=== PATIENT | female | born 1930 | race Caucasian/White ===

== ENCOUNTER 2016-12-10 03:59 | Inpatient (IN) | payer MEDICARE ==
[2016-12-10] VITALS (7 sets, daily range): BP systolic 112–166; BP diastolic 42–78; PULSE 70–82; RESP 16–22; O2SAT 92–98
[~2016-12-10] VITALS: Ht 157.5 cm; Wt 65.6 kg
[~2016-12-10 03:59] MED LIST: ASP81TEC PO; DEXT1DRO8 OP; HYDR12.55 PO; HYDR1TAB69 PO; LOPRESSOR25 MG PO; LOVA40TA PO; MVI PO; OMEP20TA86 PO; POLY1PAC PO; [UNRECOGNIZED DRUG - CODE] SC
[2016-12-10 05:23] LABS: BASOPHILS % (AUTO) 0.1 % (0-3); EOSINOPHILS % (AUTO) 0.4 % (0-5); MONOCYTES % (AUTO) 11.2 % (4-12); Mean Corpuscular Hemoglobin 32.9 pg (27.0-35.0); Mean Corpuscular Volume 94.6 fL (81-100); NEUTROPHILS % (AUTO) 71.8 % (40-74); Platelet Count 207 bil/L (150-400)
--- NOTE | 2016-12-10 05:32 | ED.REPORT ---
HPI-Fever Date of Service Dec 10, 2016 ED Provider: Kevin Kay MD This is a 86-year-old female with history of vascular dementia, hypertension, hyperlipidemia who presents to the emergency department for fever. Info as relayed by as patient has severe dementia. notes that patient has been having nonproductive coughing since 6 days prior and has developed a fever for the last 3 days with temperature of 100.4. has been giving Tylenol to help control the fever. Associated symptoms include runny nose. Denies myalgias, arthralgias, chest pain, shortness of breath, nausea, vomiting , abdominal pain, diarrhea. Possible sick contacts around, but they are uncertain. is uncertain of changes in urinary symptoms. Nursing Notes Stated Complaint: FLU LIKE SYMPTOMS Chief Complaint: General Complaint Nursing Notes Reviewed: Yes Allergies: Coded Allergies: No Known Allergies (Unverified , 12/12/13) Scheduled Aspirin-Expunged Drug, Do Not Renew! (Aspirin EC-Expunged Drug, Do Not Renew!) 81 Mg Tablet 81 MG PO DAILY Enoxaparin-Expunged Drug, Do Not Renew! (Lovenox-Expunged Drug, Do Not Renew!) 40 Mg/0.4 Ml Soln 40 MG SC DAILY Hydrochlorothiazide-Expunged, Do Not Renew! (Hydrochlorothiazide-Expunged, Do Not Renew!) 12.5 Mg Tablet 12.5 MG PO DAILY Hydrocod/APAP-Expunged, Do Not Renew! (VICODIN-Expunged Drug, Do Not Renew) 1 Tab Tab 1 TAB PO Q4 Lovastatin-Expunged Drug, Do Not Renew! (Lovastatin-Expunged Drug, Do Not Renew! ) 40 Mg Tablet 40 MG PO HS Metoprolol Tart-Expunged Drug, Do Not Renew! (Metoprolol Tart-Expunged Drug, Do Not Renew!) 25 Mg Tab 25 MG PO DAILY Omeprazole-Expunged Drug, Do Not Renew! (Omeprazole-Expunged Drug, Do Not Renew! ) 20 Mg Tablet.dr 20 MG PO DAILY PEG 3350-Expunged Drug, Do Not Renew! (Miralax-Expunged Drug, Do Not Renew!) 17 Gm/Pkt Packet 17 GM PO DAILY Therapeutic Multivit/Minerals-Expunged Drug, (Therapeutic Multivit/Minerals- Expunged Drug,) 1 Ea Tab 1 TAB PO DAILY Miscellaneous Medications Dextran 70/Hypromellose (Artificial Tears Drops) 1 Each Droperette 1 EACH OP General Time Seen by MD: 04:40 Chief Complaint Recent fever Hx Obtained From: Spouse Past Medical History Past Medical History Vascular dementia hypertension hyperlipidemia left eye blindness Past Surgical History Left Hip surgery Smoking History Former Smoker Social History Alcohol Use: Denies alcohol use Drug Use: Denies drug use Review of Systems Constitutional: Reports: Fever, Weakness - generalized Ears / Nose / Throat: Reports: Nasal congestion, Denies: Earache bilateral Respiratory: Reports: Non-productive cough, Denies: Shortness of breath Cardiovascular: Denies: Chest pain GI: Denies: Abdominal pain, Diarrhea, Nausea, Vomiting Female: Denies: Dysuria, Urinary frequency Complete sys rev & neg: except as marked. Physical Exam Initial Vital Signs Vital Signs (First) Date Time Temp Pulse Resp B/P Pulse Ox O2 Delivery O2 Flow Rate FiO2 12/10/16 04:07 36.5 79 19 130/42 97 Room Air Initial VS: Reviewed Head / Eyes: Atraumatic, Normocephalic ENT: Mucous membranes moist, Conjunctiva normal, No scleral icterus Abdomen / GI: Soft, Non-tender, No guarding, No rebound, No distention Back: No CVA tenderness Lymphatic: No lymphadenopathy Extremities: Vascular intact, Neuro intact, No swelling Respiratory / Chest: No rhonchi, No wheezing Rales / Rhonchi: Positive: Rales R base Tachypnea Cardiovascular: Heart rate NL, Regular rhythm, Heart sounds NL, No murmurs Neurologic: Speech NL Mental Status: Positive: Memory impairment chronic Lymphatic: No cervical adenopathy Interpretation & Diagnostics Lab Results Interpretation Result Diagram: 12/10/16 0510 12/10/16 0510 Test 12/10/16 05:10 12/10/16 05:28 White Blood Count 10.5th/mm3 (3.8-10.1) Red Blood Count 3.71mil/mm3 (3.90-5.20) Hemoglobin 12.2g/dL (12.0-15.6) Hematocrit 35.1% (35.0-46.0) Mean Corpuscular Volume 94.6fL (81-100) Mean Corpuscular Hemoglobin 32.9pg (27.0-35.0) Mean Corpuscular Hemoglobin Concent 34.8% (32.0-37.0) Red Cell Distribution Width 13.5% (12.3-15.4) Platelet Count 207bil/L (150-400) Neutrophils (%) (Auto) 71.8% (40-74) Lymphocytes (%) (Auto) 16.0% (14-46) Monocytes (%) (Auto) 11.2% (4-12) Eosinophils (%) (Auto) 0.4% (0-5) Basophils (%) (Auto) 0.1% (0-3) Sodium Level 130mEq/L (134-144) Potassium Level 4.1mEq/L (3.5-5.2) Chloride Level 95mEq/L (97-108) Carbon Dioxide Level 20mmol/L (18-29) Blood Urea Nitrogen 13mg/dL (8-27) Creatinine 0.56mg/dL (0.57-1.00) Estimat Glomerular Filtration Rate 147mL/min (>59) Glucose Level 120mg/dL (60-99) Lactic Acid Level 1.1mmol/L (0.4-2.0) Calcium Level 8.6mg/dL (8.5-10.1) Total Bilirubin 0.9mg/dL (0.0-1.2) Aspartate Amino Transf (AST/SGOT) 85U/L (0-50) Alanine Aminotransferase (ALT/SGPT) 89U/L (0-32) Alkaline Phosphatase 84U/L (25-165) Total Protein 7.0g/dL (6.4-8.4) Albumin 3.3g/dL (3.4-5.0) Procalcitonin 0.12ng/mL (0.00-0.08) Urine Color Yellow (YELLOW) Urine Appearance Cloudy (CLEAR,HAZY) Urine pH 6.0 (5.0-8.0) Urine Specific [place] 1.015 (1.003-1.035) Urine Protein Tracemg/dL (NEG,TRACE) Urine Glucose (UA) Negativemg/dL (NEGATIVE) Urine Ketones Negativemg/dL (NEGATIVE) Urine Occult Blood Moderate (NEGATIVE) Urine Nitrite Negative (NEGATIVE) Urine Bilirubin Negative (NEGATIVE) Urine Urobilinogen Normalmg/dL (NORMAL) Urine Leukocyte Esterase Large (NEGATIVE) Urine RBC 3-10/hpf (0-2) Urine WBC Packed/hpf (0-5) Urine Epithelial Cells Occasional/hpf (NONE-MOD) Urine Crystals None seen (NONE SEEN) Urine Bacteria Many/hpf (NONE-FEW) Urine Hyaline Casts None/lpf (NONE) Urine Granular Casts None seen (NONE SEEN) Urine Waxy Casts None seen (NONE SEEN) Urine Red Blood Cell Casts None seen (NONE SEEN) Urine White Blood Cell Casts None seen (NONE SEEN) Urine Mucus None seen (None Seen) Urine Trichomonas None seen (NONE SEEN) Urine Yeast None (NONE SEEN) Urinalysis Comment None Urine Culture Reflexed Indicated X-Ray Chest Interpretation Interpretation / Wet Read by: Wet read ED physician Infiltrate / Pneumothorax: Infiltrate R middle lung CHF / Pleural Effusion: Small right effusion Re-Eval/Medical Decision Med Decision/Clinical Course This is a 86-year-old female with history of vascular dementia, hypertension, hyperlipidemia who presents to the emergency department for non-productive cough , rhinorrhea and fever which has been worsening over the past 6 days. Patient has had increased dementia than baseline. On physical exam, patient has rales at the right lung base, but no other specific findings. WBC 10.5, Sodium 130, AST 85, ALT 89, lactic acid 1.1. UA shows large leukocyte esterase with packed WBC consistent with UTI. Chest X-ray on wet read shows small right pleural effusion with possible consolidation right middle lobe consolidation. Patient will need admission for UTI, pneumonia given her increased dementia. Patient given levofloxacin and 1L NS in ED. Consultation : Referral / Consult Name: Israel Glover MD Consulted With: Hospitalist Micro Computer Specialist: Accepts admit Counseled Regarding: Diagnosis, Lab results, Need for admission Discharge & Departure Impression: Primary Impression: Pneumonia Pneumonia type: due to unspecified organism Laterality: right Lung location : unspecified part of lung Qualified Code: J18.9 - Pneumonia, unspecified organism Additional Impressions: UTI (urinary tract infection) Urinary tract infection type: acute cystitis Hematuria presence: with hematuria Qualified Code: N30.01 - Acute cystitis with hematuria Dementia Dementia type: vascular dementia Dementia behavioral disturbance: without behavioral disturbance Qualified Code: F01.50 - Vascular dementia without behavioral disturbance Disposition: ADMITTED TO HOSPITAL Discharge Condition All VS Reviewed: Yes Condition: Stable Referrals: Magno Michele MD (PCP) Attending Statement As attending of record for this patient, I conducted an independent history and physical examination, and agree with the documentation per the resident note as above, and as amended. Israel Mcelroy DO Dec 10, 2016 05:32 Kevin Kay MD Dec 10, 2016 06:41
[2016-12-10 05:38] LABS: APPEARANCE,URINE CLOUDY (CLEAR,HAZY); COLOR,URINE YELLOW (YELLOW); OCCULT BLOOD,URINE MODERATE (NEGATIVE); UROBILINOGEN,URINE NORMAL (NORMAL)
[2016-12-10] MEDS ORDERED: levoFLOXacin Inj 750 MG in IV Premix 1 EACH IV ONE (05:55)
[2016-12-10] MEDS ORDERED: 0.9% Sodium Chloride 1,000 ML IV ONE ×2 (05:55→13:55)
[2016-12-10] MEDS ORDERED: Ondansetron 2 mg/mL 2 mL Inj IVPUSH PRN ×2 (06:10→13:50)
[2016-12-10] MEDS ORDERED: Polyethylene Glycol (PEG) 17 Gm Powder PO PRN ×2 (06:10→13:50)
[2016-12-10] MEDS ORDERED: Alum-Mag Hydrox-Simeth 30 mL Suspension PO PRN ×2 (06:10→13:50)
--- NOTE | 2016-12-10 06:54 | NUR ---
Arrival to [facility] at 0635 am, at bedside. Tucked in to bed, brief is clean and dry. IVF in place from ed: NS infuisng via drip and ABX now on pump. VSS, skin examined and no bruises or breakdown noted. Care transferred to day shift RN
--- NOTE | 2016-12-10 07:55 | NUR ---
Admit Pt admitted to [facility] Rm 1006; IV Levaquin and NS infusing from ED; no c/o pain, pt has hx of dementia at baseline per , VSS, alert to self and to but very confused and states, "I'm confused." present for admit questions and answers states he is the primary care management associate and that they live alone in their home. Per pt doesn't is a fall risk due to vascular dementia and states no hx of diabetes, pt incontinent but uses a bathrooming regimen at home. 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 [place] placed on arm with IV and pt refusing AM labs this morning which required 2 people distraction to perform for blood culture orders. Will continue to monitor with frequent rounds.
--- NOTE | 2016-12-10 08:05 | DRSVH ---
PROCEDURE: X-RAY CHEST ONE VIEW, PORTABLE ([id number]) INDICATIONS: cough TECHNIQUE: One view of the chest was acquired. COMPARISON: PHUONG Aguilar, CHEST 2VW, 06/05/2016, 5:01 PM. FINDINGS: Surgical changes and devices: compliance monitor leads are seen over the chest. Lungs and pleura: No pleural effusions or pneumothorax. Lungs show diffuse increased markings more peripherally and centrally. Subtle infiltrate cannot be excluded in the lateral aspect of the right u pper lobe. Mediastinum: Mediastinal contours appear normal. Heart size is normal. Bones and chest wall: No suspicious bony lesions. Overlying soft tissues appear unremarkable. IMPRESSION: Increase chronic fibrotic markings in the chest. Minimal infiltrate in the right upper lobe laterally cannot be excluded. Dictated by: Adam Nuno M.D. on 12/10/2016 at 8:02 Approved by: Adam Nuno M.D. on 12/10/2016 at 8:03
[2016-12-10] MEDS ORDERED: ASPI-973 PO (09:06)
[2016-12-10] MEDS ORDERED: LOV40 SUBQ (09:07)
[2016-12-10] MEDS ORDERED: DEXT1DRO8 BOTH_EYES (09:07)
[2016-12-10] MEDS ORDERED: HYDR-3090 PO (09:08)
[2016-12-10] MEDS ORDERED: HYDR12.55 PO (09:08)
[2016-12-10] MEDS ORDERED: METO25TA6 PO (09:09)
[2016-12-10] MEDS ORDERED: LOVA40TA PO (09:09)
[2016-12-10] MEDS ORDERED: OMEP20CA11 PO (09:10)
[2016-12-10] MEDS ORDERED: POLY17PO6 PO (09:10)
[2016-12-10] MEDS ORDERED: MULT1CAP33 PO (09:11)
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
[2016-12-10] MEDS ORDERED: ALEN70TA2 PO (10:57)
--- NOTE | 2016-12-10 10:58 | NUR ---
Fosamax Per pt , pt takes PO Fosamax q weekly every Sunday in the AM; pt missed 12/08/16 dose due to fever. Updated to med rec.
[2016-12-10] MEDS ORDERED: HYDROCODONE ACETAMINOPHEN PO PRN (13:50)
[2016-12-10] MEDS ORDERED: HYDROcodone-APAP 5-325 mg Tablet PO PRN (14:10)
[2016-12-10] MEDS: cefTRIAXone Inj 2,000 MG in Dextrose 5% Minibag Plus 50 ML IV SCH (14:43)
--- NOTE | 2016-12-10 15:10 | PCM.HPMED ---
Subjective Date of Service Dec 10, 2016 Primary Provider: Admitting Physician: Israel Glover MD Primary Care Physician: Magno Michele MD Attending Physician: Israel Glover MD Chief Complaint: Weakness, fever History of Present Illness: 86 year old female with history of advanced dementia is brought by her with report of patient increasingly more weak and occasional cough over the past several days with fever of 100.4 yesterday. Patient herself is quite demented and thus unable to provide any significantly meaningful history. She does report mild shortness of breath and dysuria. In the ER she received a dose of IV Levofloxacin for presumed pneumonia and UTI. Review of Systems: Constitutional: Negative, except as otherwise mentioned in the history above. Ophthalmologic: Negative, except as otherwise mentioned in the history above. Cardiovascular: Negative, except as otherwise mentioned in the history above. Respiratory: Negative, except as otherwise mentioned in the history above. Gastrointestinal: Negative, except as otherwise mentioned in the history above. Genitourinary: Negative, except as otherwise mentioned in the history above. Musculoskeletal: Negative, except as otherwise mentioned in the history above. Neurological: Negative, except as otherwise mentioned in the history above. Psychiatric: Negative, except as otherwise mentioned in the history above. Hematologic/Lymphatic: Negative, except as otherwise mentioned in the history above. Allergic/Immunologic: Negative, except as otherwise mentioned in the history above. Allergies Coded Allergies: No Known Allergies (Unverified , 12/12/13) Home Medications Enoxaparin 40 Mg SUBQ DAILY Lovastatin 40 Mg PO HS Metoprolol Tartrate 25 Mg PO DAILY Aspirin 81 Mg PO DAILY Hydrocodone-Acetaminophen 5-300 mg 1 Tablet PO Q4H PRN Hydrochlorothiazide 12.5 Mg PO DAILY Dextran 70/Hypromellose/Pf 1 Drop BOTH_EYES BID PRN Omeprazole 20 Mg PO DAILY Polyethylene Glycol 17 Gm PO DAILY Multivitamin 1 Each PO DAILY Alendronate Sodium 70 Mg PO q w 30 Days PMH 1. Hypertension. 2. Vascular Dementia. 3. Left eye blindness. 4. History of ectopic supraventricular beats. 5. L4 low back pain, disk herniation history. 6. Hypercholesterolemia. 7. Shingles. Family History Denies any family history of heart problems Social History Hx Alcohol Use: No Hx Substance Use: No Hx Tobacco Use: Yes (quit in 1988.) Smoking Status: Former Smoker Living Arrangement: Other ( and lives with her who is her primary direct care professional) Exam Vital Signs Vital Sign - Last Date Time Temp Pulse Resp B/P Pulse Ox O2 Delivery O2 Flow Rate FiO2 12/10/16 12:38 36.0 74 16 144/66 95 Room Air Intake and Output 12/09/16 12/09/16 12/10/16 Cumulative From/Thru 15:00 23:00 07:00 12/10/16 04:07 - 12/10/16 06:50 Intake Total 1000 ml 1000 ml Balance 1000 ml 1000 ml Intake IV Total 1000 ml 1000 ml General: Alert, Cooperative, No Acute Distress, Other (disoriented x 3) Head: Normal Eyes: Scleral Anicteric, Other (left eye blind) Nose: Mucous Membr Moist/[place] Mouth: Mucous Membr Moist/[place] Neck: Supple Chest & Lungs: Chest Wall Normal, Clear to auscultation & percussion Cardiovascular: Regular Rate/Rhythm Pulses: NL carotid, radial, femoral, DP, PT Abdomen: Non-tender, Non-distended, Normoactive bowel tones, Soft Extremities: No cyanosis/clubbing/edma bilat Skin: Other (no significant ulcer/rash) Neurological: Grossly Neurologically Intact, Normal Speech Additional Information: Psych: Calm, appropriate Lab and Diagnostics Result Diagram: 12/10/1650912/10/16509 X-Rays, CTs and MRIs Date of Service: 12/10/16446 PROCEDURE: X-RAY CHEST ONE VIEW, PORTABLE ([id number]) IMPRESSION: Increase chronic fibrotic markings in the chest. Minimal infiltrate in the right upper lobe laterally cannot be excluded. Dictated by: Adam Nuno M.D. on 12/10/2016 at 8:02 Approved by: Adam Nuno M.D. on 12/10/2016 at 8:03 Assessment & Plan 86 year old female with history of dementia is brought by her with report of increased weakness, occasional cough, and fever # Acute urinary tract infection (UTI), present on admission. - Change antibiotics from Levofloxacin given in ED to Ceftriaxone - Followup pending urine culture # Possible acute right upper lobe community acquired pneumonia, present on admission - Check sputum culture - Ceftriaxone + Azithromycin - Continue with supportive care # Generalized weakness due to underlying infection, present on admission - Antibiotics as noted above - IVF - PT - Supportive care # Acute mid hyponatremia and hypochloremia, present on admission - Likely due to dehydration - Hold home dose Hctz for now and give gentle IVF - Followup repeat labs # Acute mild transaminitis, present on admission. - Followup repeat labs after hydration over night # History of hypertension, stable - Continue with home BP meds # History of hypercholesterolemia - Continue with home statin # History of dementia, appears at baseline - Continue with supportive care Expected length of hospital stay is greater than 2 midnights and likely 2-3 days GI Prophylaxis: Proton Pump Inhibitor VTE Prophylaxis: Sub-Q Heparin (Unfractionated) Resuscitation Status: DNR/DNI:Do Not Resuscitate/Intubate (discussed and verified with patient's and reviewed signed POLST) Time spent 60 min Jonathan Rodgers Dec 10, 2016 15:10
[2016-12-10] MEDS: Azithromycin Inj 500 MG in Dextrose 5% w/Vial Mate 250 ML IV SCH (16:10)
--- NOTE | 2016-12-10 16:48 | PCM.ADCARE ---
Advance Care Planning Note Purpose of Encounter: Goals of care and possible placement given advancing dementia Parties in Attendance: Patient and her Decisional Capacity: Patient is not decisional due to dementia Subjective: Patient reports some weakness and shortness of breath. Her feels that patient becoming more forgetful and weaker and somewhat more difficult to manage at home Objective: General: Alert, Cooperative, No Acute Distress, Other (disoriented x 3) Head: Normal Eyes: Scleral Anicteric, Other (left eye blind) Nose: Mucous Membr Moist/[place] Mouth: Mucous Membr Moist/[place] Neck: Supple Chest & Lungs: Chest Wall Normal, Clear to auscultation bilat Psych: Calm, appropriate Goals of Care Determinations: Patient's wishes to continue with DNR/DNI but also wishes to talk with other family members regarding possible move towards comfort care in the future. He feels that he would be a better anesthesiologist and critical care for the patient as opposed to her going to a memory care unit but also acknowledges that physically it is becoming more difficult to take care of the patient alone by himself Plan: Continue with current medical care outlined in H&P. Will plan for possible palliative care consult in AM as well. CODE STATUS: DNR/DNI Time Spent Adv.Care Plannin min Jonathan Rodgers Dec 10, 2016 16:48
[2016-12-10] MEDS: Heparin 5,000 Unit/mL Inj SUBQ SCH (17:23)
--- NOTE | 2016-12-10 19:55 | NUR ---
RONY explained to pt's who is at bedside. RONY signed, copy of RONY and Medicare self administered medication information given to pt.
[2016-12-10] MEDS: Artificial Tears 15 mL Ophthalmic Solution BOTH_EYES SCH (20:17)
[2016-12-11] MEDS: Heparin 5,000 Unit/mL Inj SUBQ SCH ×4 (00:35→23:37)
[2016-12-11 04:39] VITALS: BP 169/69; PULSE 84; RESP 18; O2SAT 93
[2016-12-11 05:30] LABS: BASOPHILS % (AUTO) 0.1 % (0-3); EOSINOPHILS % (AUTO) 0.9 % (0-5); MONOCYTES % (AUTO) 11.8 % (4-12); Mean Corpuscular Hemoglobin 32.2 pg (27.0-35.0); Mean Corpuscular Volume 94.3 fL (81-100); NEUTROPHILS % (AUTO) 67.6 % (40-74); Platelet Count 210 bil/L (150-400)
--- NOTE | 2016-12-11 05:47 | NUR ---
Shift Note assumed pt care at 1900, pt alert to self, with baseline confusion, pt denies pain/discomfort, continues to receive intermittent IV ABO, gareth alarm on for safety, call light in reach at all times.
[2016-12-11 05:50] LABS: Magnesium 1.9 mg/dL (1.6-2.6)
--- NOTE | 2016-12-11 08:18 | PCM.PNMED ---
Subjective Date of Service Dec 11, 2016 Subjective Denies any new issues/complaints. Exam Vital Signs Vital Sign - Last Date Time Temp Pulse Resp B/P Pulse Ox O2 Delivery O2 Flow Rate FiO2 12/11/16 04:39 36.8 84 18 169/69 93 Room Air Intake and Output 12/10/16 12/10/16 12/11/16 Cumulative From/Thru 15:00 23:00 07:00 12/10/16 04:07 - 12/11/16 06:41 Intake Total 720 ml 420 ml 2140 ml Balance 720 ml 420 ml 2140 ml Intake Oral 720 ml 420 ml 1140 ml IV Total 1000 ml # Voids 3 2 5 # Bowel Movements 0 2 2 Exam General: Alert, Cooperative, No Acute Distress Head: Normal Eyes: Scleral Anicteric, Other (left eye blind) Nose: Mucous Membr Moist/[place] Mouth: Mucous Membr Moist/[place] Neck: Supple Chest & Lungs: Chest Wall Normal, Clear to auscultation bilat Cardiovascular: Regular Rate/Rhythm Abdomen: Seems to be a mildly and diffusely tender with deep palpation, Non- distended, Normoactive bowel tones, Soft Extremities: No cyanosis/clubbing/edema bilat Skin: Other (no significant ulcer/rash) Neurological: Grossly Neurologically Intact, Normal Speech IVs and Medications Medications Reviewed: Medications were reviewed in detail Lab and Diagnostics Result Diagram: 12/11/1644412/11/16444 X-Rays, CTs and MRIs Date of Service: 12/10/16446 PROCEDURE: X-RAY CHEST ONE VIEW, PORTABLE ([id number]) IMPRESSION: Increase chronic fibrotic markings in the chest. Minimal infiltrate in the right upper lobe laterally cannot be excluded. Dictated by: Adam Nuno M.D. on 12/10/2016 at 8:02 Approved by: Adam Nuno M.D. on 12/10/2016 at 8:03 Assessment & Plan 86 year old female with history of dementia is brought by her with report of increased weakness, occasional cough, and fever # Acute urinary tract infection (UTI), present on admission. - Changed antibiotics from Levofloxacin given in ED to Ceftriaxone - Followup pending urine culture # Possible acute right upper lobe community acquired pneumonia, present on admission - Ceftriaxone + Azithromycin - Continue with supportive care # Generalized weakness due to underlying infection, present on admission - Antibiotics as noted above - IVF - PT - Supportive care # Acute mid hyponatremia and hypochloremia, present on admission. Ongoing - Hold home dose Hctz for now and continue gentle IVF - Followup repeat labs in am # Acute transaminitis, present on admission. [place] and worse - Check abdominal U/S - Followup repeat labs in AM and if persist or worse will check viral hepatitis panel # History of hypertension, stable - Continue with home BP meds # History of hypercholesterolemia - Continue with home statin # History of dementia, appears at baseline - Continue with supportive care Dispo: 1-2 days GI Prophylaxis: Proton Pump Inhibitor VTE Prophylaxis: Sub-Q Heparin (Unfractionated) Resuscitation Status: DNR/DNI:Do Not Resuscitate/Intubate (discussed and verified with patient's and reviewed signed POLST) Jonathan Rodgers Dec 11, 2016 08:18
[2016-12-11] MEDS ORDERED: 0.9% Sodium Chloride 1,000 ML IV ONE (08:20)
[2016-12-11] MEDS ORDERED: LACT1CAP65 PO (08:38)
[2016-12-11] MEDS ORDERED: DEXT350P5 PO (08:44)
--- NOTE | 2016-12-11 08:59 | NUR ---
Med Rec Med Rec updated with info from . Primary nurse, Mariann Scruggs RN was notified. Primary nurse to notify doctor.
[2016-12-11] MEDS: Azithromycin Inj 500 MG in Dextrose 5% w/Vial Mate 250 ML IV SCH (09:00)
[2016-12-11 09:02] VITALS: BP 125/70; PULSE 56; RESP 18; O2SAT 94
[2016-12-11] MEDS: Pantoprazole 20 mg ER24 Tablet PO SCH (09:08)
[2016-12-11] MEDS: Artificial Tears 15 mL Ophthalmic Solution BOTH_EYES SCH ×2 (09:12→20:33)
--- NOTE | 2016-12-11 11:36 | DRSVH ---
PROCEDURE: US ABDOMEN INDICATIONS: acute transaminitis. abd pain TECHNIQUE: Real-time scanning was performed of the abdominal and retroperitoneal organs, with image documentatio n. COMPARISON: [facility], [place], ABDOMEN SONOGRAM, 03/01/2010, 18:44. FINDINGS: Liver length: 16.84 cm Gallbladder Wall Thickness: 2.30 mm CBD: 5.30 mm Spleen length: 11.81 cm Right kidney length: 9.18 cm Left kidney length: 8.57 cm Aorta(Proximal): 1.83 cm Aorta(Mid): 1.95 cm Aorta(Distal): 1.75 cm RCIA: 1.36 cm LCIA: 1.28 cm Liver: Liver is diffusely increased in echogenicity. No focal hepatic abnormalities identified. No rmal hepatic size. Gallbladder: Small mobile sludge present otherwise normal gallbladder. No gallbladder wall thickenin g or pericholecystic fluid. Biliary ducts: Intrahepatic bile ducts are non-dilated. Extrahepatic bile duct caliber is normal. Normal is 6-7 mm or less in diameter, or 10 mm or less post-cholecystectomy. Pancreas: Visualized portions of the pancreas are sonographically normal. Spleen: Spleen is normal in size and homogeneous in echotexture. Kidneys: Kidneys are normal in size and echotexture. No hydronephrosis or nephrolithiasis. No kalen d masses. Aorta: Visualized aorta is normal in caliber at less than 3 cm. Iliacs: Proximal common iliac arteries are normal in caliber at less than 2.5 cm. IVC: Intrahepatic inferior vena cava is patent. Miscellaneous: No free abdominal fluid. IMPRESSION: Increased hepatic echogenicity noted likely related to fatty infiltration of the liver but other sour radhika of hepatocellular disease cannot be excluded. Recommend clinical correlation. Gallbladder sludge. Dictated by: Matthew MOLINA Interpreted: Simon Graves MD on 12/11/2016 at 11:06 Approved by: Michael Graves M.D. on 12/11/2016 at 11:34
--- NOTE | 2016-12-11 11:44 | NUR ---
Palliative Care Palliative Care received order from Dr Rodgers 12/11/16 to assist with goals of care. Patient admitted 12/10/16. Palliative Care to follow. Liz Nichols
--- NOTE | 2016-12-11 12:49 | NUR ---
Case Management: [facility] delivered and explained to spouse at bedside. Signed original placed in chart. Copy left at bedside. Maru Díaz RN
[2016-12-11 13:10] VITALS: BP 131/50; PULSE 67; RESP 18; O2SAT 94
[2016-12-11] MEDS: cefTRIAXone Inj 2,000 MG in Dextrose 5% Minibag Plus 50 ML IV SCH (14:23)
--- NOTE | 2016-12-11 15:34 | PCM.CONPAL ---
Date of Service Dec 11, 2016 Date of Hospital Admission: Dec 10, 2016 at 06:21 Date of Palliative Consult: Dec 11, 2016 Requesting Provider: Jonathan Rodgers Reason Palliative Care Consult: Goals of Care Discussion Hospital Unit @time of consult: Orthopedic/Surgical Care (room 1006) Palliative Care Recommendation Summary of palliative recommendations: -Symptom management (Pain/other): per Attending (Red Hospitalist Team). -DPOA/Advanced Directives/POLST: 1. Code status: DNR/DNI 2. Pt is not capacitated due to her vascular dementia. Her 2nd Eric Moseley (Fred) is her HCPOA. 3. Advanced Directives: unclear at this time. -Family/emotional support: Carlin is an excellent, loving caregiver. His perception is that he can keep on caring for her in his home. Both the green chain worker and Dr. Salgado have been trying to persuade him to move her bedroom downstairs in their home as she is not safe for climbing stairs (there are 15 from the first to second floor). Currently, she is not able to stand independently, let alone walk. (See PT assessment 12/11). -Spiritual support: not discussed today. 's Goals for patient: 1. "Get treated for this pneumonia and UTI, and get her back home." 2. Carlin clearly is willing to put in the work of caregiving, and whenever she is placed at a SNF, he has followed her and spent most of every day in her room at the SNF, caring for her. 3. Carlin does acknowledge that it takes a long time to take care of her bathroom needs, to help her with eating meals. He is more tired some days, but he is very unwilling to have other people come into his home to help him care for her. The subject of hospice was not discussed by Dr. Salgado today. Instead, she attempted to open communications and trust with supportive listening. Prognosis: From my observation of patient with PT today, I think Sara qualifies for Hospice based on her poor functional status (FAST 7c). Unfortunately, it seems likely that Carlin is not ready to allow hospice care, or even home health services yet. Plan: 1. Palliative Care will meet with Carlin again on Dec 12 and try to discuss the option of hospice for his . Problems: Resuscitation Status Resuscitation Status: DNR/DNI:Do Not Resuscitate/Intubate (discussed and verified with patient's and reviewed signed POLST) Pt History History of Present Illness 86 year old female with history of advanced dementia is brought by her with report of patient increasingly more weak and occasional cough over the past several days with fever of 100.4 yesterday. Patient herself is quite demented and thus unable to provide any significantly meaningful history. She does report mild shortness of breath and dysuria. Hospital Course: In the ER she received a dose of IV Levofloxacin and was admitted for presumed pneumonia and UTI. Past Medical History Significant PMH Noted: 1. Hypertension. 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 5. L4 low back pain, disk herniation history with past back surgery and injections 6. Hypercholesterolemia. 7. Shingles. Family History Per , no family history of heart problems Social History Raised five children with her first , worked part-time as a facilities clerk. and now to current x 40 years. Lived in [facility] with him 20 years, then [place] x 20 years. Former smoker, quit in 1988. Her 2nd has been her PCP full-time since 2007, when he had to retire to take care of her as she became frailer from back pain and dementia. Medications Current Medications: Current Medications Al Hydrox/Mg Hydrox/Simethicone 30 ml Q6H PRN PO; Start 12/10/16 at 06:10; Stop 12/10/16 at 13:47; Status DC Ondansetron HCl 4 to 8 mg Q4H PRN IVPUSH; Start 12/10/16 at 06:10; Stop at 13:47; Status DC Senna 17.2 mg BID PRN PO; Start 12/10/16 at 06:10; Stop 12/10/16 at 13:47; Status DC Polyethylene Glycol 17 gm DAILY PRN PO; Start 12/10/16 at 06:10; Stop 12/10/16 at 13:47; Status DC Heparin Sodium (Porcine) 5,000 unit Q8 SUBQ Last administered on 12/11/16t 09:12 ; Admin Dose 5,000 UNIT; Start 12/10/16 at 16:30 Al Hydrox/Mg Hydrox/Simethicone 30 ml Q6H PRN PO; Start 12/10/16 at 13:50 Ondansetron HCl 4 to 8 mg Q4H PRN IVPUSH; Start 12/10/16 at 13:50 Senna 17.2 mg BID PRN PO; Start 12/10/16 at 13:50 Polyethylene Glycol 17 gm DAILY PRN PO; Start 12/10/16 at 13:50 Acetaminophen 650 mg Q4H PRN PO; Start 12/10/16 at 13:50 Morphine Sulfate 1-2 mg Q4H PRN IV; Start 12/10/16 at 13:50 Ceftriaxone Sodium 2000 mg/ Dextrose/Water 50 ml @ 100 mls/hr Q24H IV Last administered on 12/11/16 14:23; Admin Dose 100 MLS/HR; Start 12/10/16 at 13:50 Azithromycin/ Dextrose/Water 250 ml @ 250 mls/hr Q24 IV Last administered on 09:00; Admin Dose 250 MLS/HR; Start 12/10/16 at 13:50 Aspirin 81 mg DAILY PO; Start 12/11/16 at 08:30; Stop 12/11/16 at 08:30; Status DC Metoprolol Tartrate 25 mg DAILY PO; Start 12/11/16 at 08:30; Stop 12/11/16 at 08 :30; Status DC Non-Formulary Medication 1 drop BID PRN BOTH_EYES; Start 12/10/16 at 13:50; Stop 12/10/16 at 14:08; Status DC Non-Formulary Medication 1 tablet Q4H PRN PO; Start 12/10/16 at 13:50; Stop 01/16 at 14:06; Status DC Non-Formulary Medication 40 mg HS PO; Start 12/10/16 at 21:00; Stop 12/10/16 at 21:00; Status DC Non-Formulary Medication 20 mg DAILY PO; Start 12/11/16 at 08:30; Stop 12/11/16 at 08:30; Status DC Pantoprazole 20 mg 0630 PO Last administered on 12/11/16 09:08; Admin Dose 20 MG; Start 12/11/16 at 06:30 Acetaminophen/ Hydrocodone Bitart 1 tablet Q4H PRN PO; Start 12/10/16 at 14:10 Atorvastatin Calcium 10 mg HS PO Last administered on 12/10/16 20:17; Admin Dose 10 MG; Start 12/10/16 at 21:00; Stop 12/11/16 at 08:22; Status DC Artificial Tears 1 drop BID BOTH_EYES Last administered on 12/11/16 09:12; Admin Dose 1 DROP; Start 12/10/16 at 20:30 Aspirin 81 mg HS PO Last administered on 12/10/16 20:17; Admin Dose 81 MG; Start 12/10/16 at 21:00 Metoprolol Tartrate 25 mg HS PO Last administered on 12/10/16 20:17; Admin Dose 25 MG; Start 12/10/16 at 21:00 Benzonatate 100 mg TID PRN PO; Start 12/11/16 at 05:50 Scheduled Alendronate Sodium (Fosamax) 70 Mg Tablet 70 MG PO Q Sunday Aspirin (Aspirin) 81 Mg Tablet 81 MG PO QPM Dextran 70/Hypromellose/Pf (Artificial Tears Drops) 1 Each Droperette 1 DROP BOTH_EYES BID Dextrin (Fiber) 350 Gm Powder 1 TSP PO DAILY Lactobacillus Acidophilus (Probiotic) 1 Each Capsule 1 CAPSULE PO HS Lovastatin (Lovastatin) 40 Mg Tablet 40 MG PO HS Metoprolol Tartrate (Metoprolol Tartrate) 25 Mg Tablet 25 MG PO QAM Multivitamin (Multivitamins) 1 Each Capsule 1 EACH PO DAILY Omeprazole (Omeprazole) 20 Mg Capsule.dr 20 MG PO Every other day Polyethylene Glycol 3350 (Miralax) 17 Gm Powd.pack 8.6 GM PO Every other day Half a package Objective Findings Exam Vital Sign - Last Date Time Temp Pulse Resp B/P Pulse Ox O2 Delivery O2 Flow Rate FiO2 12/11/16 13:10 36.9 67 18 131/50 94 Room Air Intake and Output 12/10/16 12/10/16 12/11/16 Cumulative From/Thru 15:00 23:00 07:00 12/10/16 04:07 - 12/11/16 06:41 Intake Total 720 ml 420 ml 2140 ml Balance 720 ml 420 ml 2140 ml Intake Oral 720 ml 420 ml 1140 ml IV Total 1000 ml # Voids 3 2 5 # Bowel Movements 0 2 2 Objective General: somnolent, when asked questions, if she wakes up to reply, she repeats her answer as part of your question: I.E., Questioner: "do you know what place this is, where you are at?" Answer: "No, I don't know where this is, I don't know where I am at." Head: Normal Eyes: makes no eye contact, Scleral Anicteric, Right eye blind (from detached retina after a fall several years ago) Nose: Mucous Membr Moist/[place] Mouth: Mucous Membr Moist/[place] Neck: No JVP seen. Chest & Lungs: clear anterior bey Cardiovascular: S1, S2, Regular Rate/Rhythm Abdomen: Non-distended, Normoactive bowel tones, Soft Extremities: No cyanosis/clubbing/edema bilat Skin: no significant ulcer/rash Neurological: Grossly Neurologically Intact, Normal Speech Lab/Diagnostics Lab and Imaging results reviewed in detail in EMR. Time spent Total time 70 minutes; >50% face to face with patient and/or family, providing counselling regarding plans and recommendations, and in care coordination with his/her medical teams. Bianca Salgado MD Dec 11, 2016 15:34 Bianca Salgado MD Dec 11, 2016 15:34
--- NOTE | 2016-12-11 16:05 | NUR ---
Evaluation completed. Please go to "Notes" then click on "Assessments and Notes" (bottom left corner of screen). Then select appropriate discipline tab on top of screen.
--- NOTE | 2016-12-11 17:33 | NUR ---
Shift Pt sleeping between care today and abx administration; up with PT today with gait belt and FWW, 2 person max assist to stand next to bed and unable to stand for more than 3 seconds. Pt incontinent of urine and stool; 2 large soft BM's today during shift. Care ongoing.
--- NOTE | 2016-12-11 17:48 | NUR ---
spiritual care: pt request conversational visit with pt's Carlin, he shared detailed report of pt's last few days and declining strength. pt known to lead electrical engineer from community.
[2016-12-11 20:07] VITALS: BP 145/78; PULSE 85; RESP 18; O2SAT 95
--- NOTE | 2016-12-12 03:40 | NUR ---
IV site Pt pulled out peripheral IV catheter on left AC at around 2250ish. New IV catheter inserted on right arm, dressing is C/D/I, IV line patent and flush with no resistance. Arm sleeve applied on right arm and pt is tolerating it well. No swollen, warm, and infiltration noted on left post IV site. Care continues.
[2016-12-12 04:40] VITALS: BP 150/82; PULSE 76; RESP 17; O2SAT 97
[2016-12-12] MEDS: Pantoprazole 20 mg ER24 Tablet PO SCH (06:37)
[2016-12-12] MEDS: Azithromycin Inj 500 MG in Dextrose 5% w/Vial Mate 250 ML IV SCH (08:23)
[2016-12-12] MEDS: Artificial Tears 15 mL Ophthalmic Solution BOTH_EYES SCH ×2 (08:23→20:34)
[2016-12-12] MEDS: Heparin 5,000 Unit/mL Inj SUBQ SCH ×3 (08:24→23:48)
[2016-12-12] MEDS ORDERED: levoFLOXacin Dose Per Pharmacist XX ONE (09:35)
--- NOTE | 2016-12-12 10:09 | PCM.PNMED ---
Subjective Date of Service Dec 12, 2016 Subjective Denies any new issues/complaints. Exam Vital Signs Vital Sign - Last Date Time Temp Pulse Resp B/P Pulse Ox O2 Delivery O2 Flow Rate FiO2 12/12/16 04:40 36.8 76 17 150/82 97 Room Air Intake and Output 12/11/16 12/11/16 12/12/16 Cumulative From/Thru 15:00 23:00 07:00 12/10/16 04:07 - 12/12/16 06:11 Intake Total 472 ml 1607 ml 4219 ml Balance 472 ml 1607 ml 4219 ml Intake Oral 472 ml 400 ml 2012 ml IV Total 1207 ml 2207 ml # Voids 4 3 12 # Bowel Movements 2 1 5 Exam General: Alert, Cooperative, No Acute Distress Head: Normal Eyes: Scleral Anicteric, Other (left eye blind) Nose: Mucous Membr Moist/[place] Mouth: Mucous Membr Moist/[place] Neck: Supple Chest & Lungs: Chest Wall Normal, Clear to auscultation bilat Cardiovascular: Regular Rate/Rhythm Abdomen: Seems to be a mildly and diffusely tender with deep palpation, Non- distended, Normoactive bowel tones, Soft Extremities: No cyanosis/clubbing/edema bilat Skin: Other (no significant ulcer/rash) Neurological: Grossly Neurologically Intact, Normal Speech IVs and Medications Medications Reviewed: Medications were reviewed in detail Lab and Diagnostics Result Diagram: 12/11/1644412/12/16739 X-Rays, CTs and MRIs Date of Service: 12/10/16446 PROCEDURE: X-RAY CHEST ONE VIEW, PORTABLE ([id number]) IMPRESSION: Increase chronic fibrotic markings in the chest. Minimal infiltrate in the right upper lobe laterally cannot be excluded. Dictated by: Adam Nuno M.D. on 12/10/2016 at 8:02 Approved by: Adam Nuno M.D. on 12/10/2016 at 8:03 Additional Diagnostics Date of Service: 12/11/16 0729 PROCEDURE: US ABDOMEN IMPRESSION: Increased hepatic echogenicity noted likely related to fatty infiltration of the liver but other sources of hepatocellular disease cannot be excluded. Recommend clinical correlation. Gallbladder sludge. Dictated by: Matthew Marsh [facility] Interpreted: Simon Graves MD on 12/11/2016 at 11: 06 Approved by: Michael Graves M.D. on 12/11/2016 at 11:34 Assessment & Plan 86 year old female with history of dementia is brought by her with report of increased weakness, occasional cough, and fever # Acute urinary tract infection (UTI) with Enterococ Faecalis - (Group D), present on admission. - Change antibiotics back to Levofloxacin given culture results # Possible acute right upper lobe community acquired pneumonia, present on admission - Ceftriaxone + Azithromycin will be changed to Levofloxacin as noted above - Continue with supportive care # Acute transaminitis, present on admission. [place] and worse - Abdominal U/S unrevealing as noted above - Check viral hepatitis panel - Followup repeat labs in AM and if persist or worse and viral hep panel negative will consider GI consult. # Generalized weakness due to underlying infection, present on admission - Antibiotics as noted above - IVF - PT - Supportive care # Acute mid hyponatremia and hypochloremia, present on admission. Ongoing - Hold home dose Hctz for now and continue gentle IVF - Followup repeat labs in am # History of hypertension, stable - Continue with home BP meds # History of hypercholesterolemia - Continue with home statin # History of dementia, appears at baseline - Continue with supportive care Dispo: 1-2 days GI Prophylaxis: Proton Pump Inhibitor VTE Prophylaxis: Sub-Q Heparin (Unfractionated) Resuscitation Status: DNR/DNI:Do Not Resuscitate/Intubate (discussed and verified with patient's and reviewed signed POLST) Jonathan Rodgers Dec 12, 2016 10:09
--- NOTE | 2016-12-12 10:55 | PCM.PALLBR ---
Palliative Care Recommendation Summary of palliative recommendations: -Symptom management (Pain/other): per Attending (Red Hospitalist Team). -DPOA/Advanced Directives/POLST: 1. Code status: DNR/DNI 2. Pt is not capacitated due to her vascular dementia. Her 2nd "Carlin Moseley (Wilfred) is her HCPOA. 3. Advanced Directives: unclear at this time. -Family/emotional support: Carlin is an excellent, loving caregiver. His perception is that he can keep on caring for her in his home. Both the beater worker helper and Dr. Salgado have been trying to persuade him to move her bedroom downstairs in their home as she is not safe for climbing stairs (there are 15 from the first to second floor). Currently, she is not able to stand independently, let alone walk. (See PT assessment 12/11). -Spiritual support: not discussed today. 's Goals for patient: 1. "Get treated for this pneumonia and UTI, and get her back home." 2. Carlin clearly is willing to put in the work of caregiving, and whenever she is placed at a SNF, he has followed her and spent most of every day in her room at the SNF, caring for her. 3. Carlin does acknowledge that it takes a long time to take care of her bathroom needs, to help her with eating meals. He is more tired some days, but he is very unwilling to have other people come into his home to help him care for her. The subject of hospice was not discussed by Dr. Salgado on 12/11. Instead, she attempted to open communications and trust with supportive listening. Prognosis: From my observation of patient with PT 12/11 and observation/exam on , I think Sara qualifies for Hospice based on her poor functional status ( FAST 7c). Plan: 1. Palliative Care met with Carlin today,Dec 12, and after some conversation and counseling, he has decided he would like to get a hospice informational visit and consider home hospice for his . 2. Palliative Care will return prior to discharge to ask Carlin to complete a POLST that reflects his current goals for Sara. Problems: Resuscitation Status Resuscitation Status: DNR/DNI:Do Not Resuscitate/Intubate (discussed and verified with patient's and reviewed signed POLST) Total time 35 minutes; >50% face to face with patient and/or family, providing counselling regarding plans and recommendations, and in care coordination with his/her medical teams. Palliative Brief Note Date of Service Dec 12, 2016 . Patient Identification: 86 yo WMF with history of advanced vascular dementia is brought by her with report of patient increasingly more weak and occasional cough over the past several days with fever of 100.4 yesterday. Patient herself is quite demented and thus unable to provide any significantly meaningful history. She has mild shortness of breath and dysuria. Hospital Course: In the ER she received a dose of IV Levofloxacin and was admitted for presumed pneumonia and UTI. On 12/11, she started to have elevated LFTs and is getting some imaging and a GI consult for this. Carlin at bedside, he helped Sara eat breakfast and she has dozed off, holding a magazine. Exam General: sleeping, no visual signs of discomfort Head: Normal Eyes: Right eye blind (from detached retina after a fall several years ago) Nose: Mucous Membr Moist/[place] Mouth: Mucous Membr Moist/[place] Neck: No JVP . Chest & Lungs: clear anterior bey, regular breathing rate and rhythm Cardiovascular: S1, S2, Regular Rate/Rhythm Abdomen: Non-distended, Normoactive bowel tones, Soft Extremities: No cyanosis/clubbing/edema bilat Skin: no significant ulcer/rash Bianca Salgado MD Dec 12, 2016 10:55
[2016-12-12 12:30] VITALS: BP 137/65; PULSE 72; RESP 20; O2SAT 97
--- NOTE | 2016-12-12 13:04 | NUR ---
Social Work- Continued D/C Planning/Multidisciplinary Rounds Data: EMR reviewed. Pt is on day 2 of hospitalization. Pt discussed in multidisciplinary rounds, pt is not medically ready for discharge. Pt's mobility has declined greatly, pt is now max assist. Pt to receive possible GI consult. Palliative Care is following pt. After discussion with pt's , pt's is open to receiving a hospice infovisit. Palliative Care BRAND ACTIVATION MANAGER Giselle informed this worker by phone of this. Pt's is not agreeable to placing pt in a facility at this time, would want hospice services to occur in home. Palliative Care and this worker have encouraged pt's to move pt's care on the main level of the home if pt is going to return home. At this time, pt is not comfort care. SW met with pt and at bedside to offer support and check for any unmet needs. Pt's denied any unmet needs, is agreeable to current plan of care. SW will continue to follow. Assessment: Pt who will receive hospice infovisit, to be coordinated by Palliative Care BRAND ACTIVATION MANAGERQueenie Desai Plan: Evolving; pt to receive hospice infovisit. Pt's is devoted and hopeful that pt will be able to return home after this admission. SW will continue to follow. ANDRZEJ Hanna
--- NOTE | 2016-12-12 13:46 | NUR ---
Palliative care note D/A: Dr. Salgado met with pt and her spouse today in the am. She related to this worker that spouse is amenable for a hospice info visit. She has also kindly written an order for a hospice consult. Met with spouse about hospice info visit. Provided him with hospice choice list and discussed services available. He chooses [facility]. Phone call and message left on [facility] referral line at approx 1100. Also discussed with Jojo mendosa at that time. Spouse indicates he is here for the rest of the day and that an info visit today, if possible , would work well for him. Return call to [facility] referral line, continue to get recording. Msg left for Agustina at [facility], inquiring about possible info visit time as spouse was wondering about today if possible. Dr. Salgado aware of coordination of info visit. P: Palliative care to follow. Giselle ORTIZ CCM Addendum: 12/12/16 at 1438 by HARVINDER DAMIAN Palliative care note amendment D/A: Phone call from Millie at [facility]. Arranged for [facility] info visit for today at 1500. Discussed with spouse who indicates that this time will work for him. Return call and msg left for Millie at [facility]erral [facility] to indicate that 1500 today will work for pt spouse. Phone call to navya Burkett to indicate that plan is for [facility] info visit for today at [address]. Dr. Salgado is aware. P: Palliative care to follow. Giselle ORTIZ CCM
--- NOTE | 2016-12-12 17:23 | NUR ---
spiritual care: pt request caring visit. pt reading short devotion and engaged in limited pleasant conversation. repeated content but recalled past experiences and hymn lyrics. Provided written resource of large print scripture passage.
--- NOTE | 2016-12-12 18:19 | NUR ---
Skin/hygiene Pt incontinent of stool and urine in brief. At least q 2hour repositioning and brief changes with yunier care. No skin breakdown or areas of concern noted. in room assisting with care.
[2016-12-12 18:45] VITALS: BP 175/75; PULSE 76; RESP 18; O2SAT 95
[2016-12-12 20:15] VITALS: BP 186/74; PULSE 83; RESP 16; O2SAT 96
[2016-12-13 04:07] LABS: Hepatitis A Antibody IgM Negative (Negative); Hepatitis B Core Antibody IgM Negative (Negative)
[2016-12-13 05:45] VITALS: BP 168/82; PULSE 78; RESP 16; O2SAT 93
--- NOTE | 2016-12-13 06:24 | NUR ---
INCONTINENT: Pt. incontinent of large urine x2 tonight, no BM, yunier care, incontinent care done. Pt's at her side. Uneventful night. On going care.
[2016-12-13] MEDS: Pantoprazole 20 mg ER24 Tablet PO SCH (07:56)
--- NOTE | 2016-12-13 08:35 | PCM.PNMED ---
Subjective Date of Service Dec 13, 2016 Subjective Denies any new issues/complaints. Exam Vital Signs Vital Sign - Last Date Time Temp Pulse Resp B/P Pulse Ox O2 Delivery O2 Flow Rate FiO2 12/13/16 05:45 36.8 78 16 168/82 93 Room Air Intake and Output 12/12/16 12/12/16 12/13/16 Cumulative From/Thru 15:00 23:00 07:00 12/10/16 04:07 - 12/13/16 06:56 Intake Total 472 ml 236 ml 4927 ml Balance 472 ml 236 ml 4927 ml Intake Oral 472 ml 236 ml 2720 ml IV Total 2207 ml # Voids 5 2 19 # Bowel Movements 2 7 Exam General: Alert, Cooperative, No Acute Distress Head: Normal Eyes: Scleral Anicteric, Other (left eye blind) Nose: Mucous Membr Moist/[place] Mouth: Mucous Membr Moist/[place] Neck: Supple Chest & Lungs: Chest Wall Normal, Clear to auscultation bilat Cardiovascular: Regular Rate/Rhythm Abdomen: Non-tender, Non-distended, Normoactive bowel tones, Soft Extremities: No cyanosis/clubbing/edema bilat Skin: Other (no significant ulcer/rash) Neurological: Grossly Neurologically Intact, Normal Speech IVs and Medications Medications Reviewed: Medications were reviewed in detail Lab and Diagnostics Result Diagram: 12/11/1644412/13/16 0540 X-Rays, CTs and MRIs Date of Service: 12/10/16446 PROCEDURE: X-RAY CHEST ONE VIEW, PORTABLE ([id number]) IMPRESSION: Increase chronic fibrotic markings in the chest. Minimal infiltrate in the right upper lobe laterally cannot be excluded. Dictated by: Adam Nuno M.D. on 12/10/2016 at 8:02 Approved by: Adam Nuno M.D. on 12/10/2016 at 8:03 Additional Diagnostics Date of Service: 12/11/16 0729 PROCEDURE: US ABDOMEN IMPRESSION: Increased hepatic echogenicity noted likely related to fatty infiltration of the liver but other sources of hepatocellular disease cannot be excluded. Recommend clinical correlation. Gallbladder sludge. Dictated by: Matthew Marsh Feli Interpreted: Simon Graves MD on 12/11/2016 at 11: 06 Approved by: Michael Graves M.D. on 12/11/2016 at 11:34 Assessment & Plan 86 year old female with history of dementia is brought by her with report of increased weakness, occasional cough, and fever # Acute urinary tract infection (UTI) with Enterococ Faecalis - (Group D), present on admission. - Changed Azithromycin/Ceftriaxone (12/10-12/11) back to Levofloxacin on 12/12/16 given culture results # Possible acute right upper lobe community acquired pneumonia, present on admission - Ceftriaxone + Azithromycin changed to Levofloxacin as noted above - Continue with supportive care # Acute transaminitis, present on admission. [place] and worse - Abdominal U/S unrevealing as noted above - Viral hepatitis panel negative - GI consulted today. Will followup with recs. # Generalized weakness due to underlying infection, present on admission - Antibiotics as noted above - IVF - PT - Supportive care # Acute mild hyponatremia and hypochloremia, present on admission. Ongoing - Hold home dose Hctz for now and continue gentle IVF - Followup repeat labs in am # History of hypertension, stable - Continue with home BP meds # History of hypercholesterolemia - Hold Statin given transaminitis # History of dementia, appears at baseline - Continue with supportive care Dispo: 1-2 days pending stabilized or improving liver enzymes GI Prophylaxis: Proton Pump Inhibitor VTE Prophylaxis: Sub-Q Heparin (Unfractionated) VTE Mechanical Devices: Intermittant Pneumatic CD Resuscitation Status: DNR/DNI:Do Not Resuscitate/Intubate (discussed and verified with patient's and reviewed signed POLST) Jonathan Rodgers Dec 13, 2016 08:35
[2016-12-13] MEDS: Artificial Tears 15 mL Ophthalmic Solution BOTH_EYES SCH ×2 (09:00→22:18)
[2016-12-13] MEDS: Heparin 5,000 Unit/mL Inj SUBQ SCH ×2 (09:03→17:00)
[2016-12-13 13:50] VITALS: BP 131/67; PULSE 73; RESP 14; O2SAT 96
--- NOTE | 2016-12-13 14:08 | PCM.PALLBR ---
Palliative Care Recommendation Summary of palliative recommendations: -Symptom management (Pain/other): per Attending ([facility]ist Team). -DPOA/Advanced Directives/POLST: 1. Code status: DNR/DNI 2. Pt is not capacitated due to her vascular dementia. Her 2nd "Carlin Moseley (Wilfred) is her HCPOA. 3. Advanced Directives: unclear at this time. Will plan on assisting with new POLST prior to DC that will reflect their wishes at that time. -Family/emotional support: Carlin is an excellent, loving caregiver. His perception is that he can keep on caring for her in his home. Both the soil sort worker and Dr. Salgado have been trying to persuade him to move her bedroom downstairs in their home as she is not safe for climbing stairs (there are 15 from the first to second floor). Currently, she is not able to stand independently, let alone walk. (See PT assessment 12/11). PT reevaluating and on 12/13 Carlin noted that he might be willing for her to go to an SNF for a short stay (to help strengthen her and to give him some respite). -Spiritual support: not discussed today. 's Goals for patient: 1. "Get treated for this pneumonia and UTI, and get her back home." 2. Carlin clearly is willing to put in the work of caregiving, and whenever she is placed at a SNF, he has followed her and spent most of every day in her room at the SNF, caring for her. 3. Carlin does acknowledge that it takes a long time to take care of her bathroom needs, to help her with eating meals. He is more tired some days, but he is very unwilling to have other people come into his home to help him care for her. Hospice info visit on 12/12 though Carlin was unwilling to enroll at this time. Prognosis: From observations of patient with PT 12/11 and observation/exam on and 12/13 , we feel patient qualifies for Hospice based on her poor functional status (FAST 7c). Palliative care will continue to follow and assist patient and her spouse as plans evolve. Problems: End of Life Preferences DNR/DNI/limited interventions. Carlin is not sure that he is ready for hospice because he is not sure he is ready to have care only at home. He notes that he would want to call EMS and return to hospital if she became ill, and is uncomfortable committing purely to home care with hospice. Disposition To be determined Resuscitation Status Resuscitation Status: DNR/DNI:Do Not Resuscitate/Intubate (discussed and verified with patient's and reviewed signed POLST) POLST Updates/Changes Previous POLST?: Yes POLST Review Outcome: No Change . Pain: None Total time 35 minutes; >50% face to face with patient and family, providing counselling regarding plans and recommendations, and in care coordination with her medical teams. All of the above time spent counseling for advanced care planning with the patient's at her bedside. Palliative Brief Note Date of Service Dec 13, 2016 . Returned to reeval patient. Spoke with her and her . He met with hospice but not ready to sign on. Patient has advanced dementia and is not decisional ( though her continues to speak with her and ask her questions as if she is). No distress. Awaiting PT consult and GI consults. Exam stable. Spoke at length with her - he had a number of questions about hospice and the care they might provide. Also spoke about possible SNF placement, even if for brief time for respite for him. He has cared for patient at home for years, with increasing care burden, and recognizes that her needs may soon outstrip his capacity (but he remains hopeful that she will improve/recover to the point where he could continue her care at home). Kulwinder Bustillo MD Dec 13, 2016 14:08
--- NOTE | 2016-12-13 15:57 | NUR ---
LONGTERM TRANSFER : Gave access to [facility] [place] and [facility] per SCALE TESTER and MD orders
--- NOTE | 2016-12-13 16:30 | NUR ---
Social Work- Continued D/C Planning/Multidisciplinary Rounds Data: EMR reviewed. Pt is on day 3 of hospitalization. Pt discussed in multidisciplinary rounds, pt is not medically ready for discharge. PT has been working with pt but pt is not safe to move away from bedside at this time. Pt has been agreeable to all PT mobilization during this admission. Palliative Care is following pt. Pt and received an infovisit from [facility] today, did not sign consents. After discussion with pt's , pt's is open to referrals to SNF. is increasingly understanding that pt's mobility is a safety concern for him at home. SNF orders received from MD SANGEETA agreeable to plan. SNF CHOICE LIST provided to pt's and pt at bedside. Elected 1) [facility] and 2) [facility]. SW will continue to follow for discharge planning needs. Assessment: Pt who medically requires SNF at discharge, pt has not elected to use hospice services at this time. Plan: Referrals made to [facility] and [facility]. Pt's increasingly understanding pt's poor mobility is a safety risk at home. SW will continue to follow. ANDRZEJ Hanna
[2016-12-13 18:24] LABS: Unsaturated Iron Binding 162.2 ug/dL
--- NOTE | 2016-12-13 19:13 | PCM.CHPMED ---
Subjective Date of Service: Dec 13, 2016 Provider requesting consult: Jonathan Rodgers Primary Physician: Admitting Physician: Israel Glover MD Primary Care Physician: Magno Michele MD Attending Physician: Jonathan Rodgers Admit Status: Full Admit Chief Complaint: Chief Complaint: WEAKNESS AND FEVER History of Present Illness: Sara Cabrera is an 86-year-old lady with a history of vascular dementia , hypertension, hyperlipidemia, left eye blindness, and ectopic supraventricular beats who presented to the emergency department via EMS with a 6 day history of fever, non-productive cough, fatigue, and generalized weakness. History obtained from patient's and review of medical record due to patient's dementia. He states that around labor day he noticed that decreased energy and fatigue. He also notes elevated temperatures at home with a max of 100.4 for which he gave the patient Tylenol. Of note, patient is also on hydrocodone-acetaminophen for pain as an outpatient. He states that the patient started to show signs of improvement and her temperature returned to normal. He notes improvement in her energy level and appetite but states that her cough persisted. He did give the patient OTC cough syrup which provided some relief. He denies chest pain, shortness of breath (except with coughing), abdominal pain, nausea, vomiting, diarrhea, bloody or dark colored stool, and urinary symptoms. Admitted for further evaluation and management of pneumonia and UTI. GI consulted for persistently elevated transaminases on hospital day #3. Review of Systems: Pertinent positives and negatives as above in HPI. Unable to obtain complete review of systems secondary to patient's dementia. PMH Past Medical History Hypertension. Vascular Dementia. 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 L4 low back pain, disk herniation history. Hypercholesterolemia. Shingles. Diverticulitis s/p partial colon resection 1984 Surgical History Left Hip surgery Home Medications Enoxaparin 40 Mg SUBQ DAILY Lovastatin 40 Mg PO HS Metoprolol Tartrate 25 Mg PO DAILY Aspirin 81 Mg PO DAILY Hydrocodone-Acetaminophen 5-300 mg 1 Tablet PO Q4H PRN Hydrochlorothiazide 12.5 Mg PO DAILY Dextran 70/Hypromellose/Pf 1 Drop BOTH_EYES BID PRN Omeprazole 20 Mg PO DAILY Polyethylene Glycol 17 Gm PO DAILY Multivitamin 1 Each PO DAILY Alendronate Sodium 70 Mg PO q w 30 Days Allergies: Coded Allergies: No Known Allergies (Unverified , 12/11/16) Social History Hx Alcohol Use: NoHx Substance Use: NoHx Tobacco Use: Yes (quit in 1988.) Smoking Status: Former Smoker Living Arrangement: Other ( and lives with her who is her primary foster care worker) Additional Information She is and lives with her , who notes short term memory loss and denies alcohol or smoking history. Exam Vital Signs Vital Sign - Last Date Time Temp Pulse Resp B/P Pulse Ox O2 Delivery O2 Flow Rate FiO2 12/13/16 05:45 36.8 78 16 168/82 93 Room Air Intake and Output 12/12/16 12/12/16 12/13/16 Cumulative From/Thru 15:00 23:00 07:00 12/10/16 04:07 - 12/13/16 06:56 Intake Total 472 ml 236 ml 4927 ml Balance 472 ml 236 ml 4927 ml Intake Oral 472 ml 236 ml 2720 ml IV Total 2207 ml # Voids 5 2 19 # Bowel Movements 2 7 General: Cooperative (Demented female), No Acute Distress Head: Normal Eyes: PERRLA, Scleral Anicteric Mouth: Mucous Membr Moist/[place] Chest & Lungs: Chest Wall Normal, Crackles (bilaterally) Cardiovascular: Regular Rate/Rhythm, No Murmurs/Rubs/[place] Abdomen: Non-tender, Non-distended, No masses Extremities: No cyanosis/clubbing/edma bilat Neurological: Grossly Neurologically Intact, Normal Speech Lab and Diagnostics Labs Laboratory Tests Test 12/13/16 05:40 Sodium Level 132mEq/L (134-144) Potassium Level 4.4mEq/L (3.5-5.2) Chloride Level 95mEq/L (97-108) Carbon Dioxide Level 21mmol/L (18-29) Blood Urea Nitrogen 12mg/dL (8-27) Creatinine 0.55mg/dL (0.57-1.00) Estimat Glomerular Filtration Rate 150mL/min (>59) Glucose Level 107mg/dL (60-99) Calcium Level 8.6mg/dL (8.5-10.1) Iron Level 58ug/dL (35-150) Total Iron Binding Capacity 220ug/dL (250-450) Percent Iron Saturation 26%sat (15-50) Unsaturated Iron Binding 162.2ug/dL Ferritin 363ng/mL (13-150) Total Bilirubin 0.3mg/dL (0.0-1.2) Aspartate Amino Transf (AST/SGOT) 180U/L (0-50) Alanine Aminotransferase (ALT/SGPT) 203U/L (0-32) Alkaline Phosphatase 114U/L (25-165) Total Protein 6.4g/dL (6.4-8.4) Albumin 3.1g/dL (3.4-5.0) Microbiology 12/10/16 Blood Culture - No growth at 2 day 12/10/16 Urine Culture - Enterococ Faecalis - (Group D) Result Diagram: 12/11/16 0445 12/13/16 0540 X-Rays, CTs and MRIs 12/10/16 - X-RAY CHEST ONE VIEW, PORTABLE IMPRESSION: - Increase chronic fibrotic markings in the chest. - Minimal infiltrate in the right upper lobe laterally cannot be excluded. Approved by: Adam Nuno M.D. on 12/10/2016 at 8:03 12/11/16 - US ABDOMEN IMPRESSION: - Increased hepatic echogenicity noted likely related to fatty infiltration of the liver but other sources of hepatocellular disease cannot be excluded. Recommend clinical correlation. - Gallbladder sludge. Approved by: Michael Graves M.D. on 12/11/2016 at 11:34 . Assessment & Plan Assessment 86-year-old lady with a history of vascular dementia, hypertension, hyperlipidemia, left eye blindness, and ectopic supraventricular beats who presented to the emergency department via EMS with a 6 day history of fever, non -productive cough, fatigue, and generalized weakness. Admitted for further evaluation and management of pneumonia and UTI. GI consulted for persistently elevated transaminases on hospital day #3. Persistently elevated transaminases in patient with acute urinary tract infection and probable community acquired pneumonia. On day #3 of antibiotic therapy, Ceftriaxone and Azithromycin. - Likely secondary to azithromycin and possibly acetaminophen. - AST/ALT elevated on admission and continue to trend up. Most recently AST 180 and ALT 203 - LFT pattern does not suggest hepatic congestion or cholestasis. However, based on patient's history and physical exam would like to check an Echo. - Hepatitis panel negative RECOMMENDATIONS: - Change azithromycin to levofloxacin - Stop acetaminophen - Obtain Echocardiogram - Monitor LFTs - Labs ordered to r/o rarer causes such as hemochromatosis and Gustavo's dz. Additional problems managed by primary medicine team: - Acute urinary tract infection (UTI) with Enterococ Faecalis - (Group D) - Possible acute right upper lobe community acquired pneumonia - History of hypertension - History of hypercholesterolemia - Continue with home statin - History of dementia, appears at baseline - Acute mild hyponatremia and hypochloremia . I examined the patient with the resident and agree with above. Problems: GI Prophylaxis: Proton Pump Inhibitor VTE Prophylaxis: Sub-Q Heparin (Unfractionated) VTE Mechanical Devices: Intermittant Pneumatic CD Resuscitation Status: DNR/DNI:Do Not Resuscitate/Intubate (discussed and verified with patient's and reviewed signed POLST) Joslyn Cabrera DO Dec 13, 2016 09:58 Kvng Wu MD Dec 15, 2016 09:27 hyperlipidemia, left eye blindness, and ectopic supraventricular beats who presented to the emergency department via EMS with a 6 day history of fever, non -productive cough, fatigue, and generalized weakness. Admitted for further evaluation and management of pneumonia and UTI. GI consulted for persistently elevated transaminases on hospital day #3. Persistently elevated transaminases in patient with acute urinary tract infection and probable community acquired pneumonia. On day #3 of antibiotic therapy, Ceftriaxone and Azithromycin. - Likely secondary to azithromycin and possibly acetaminophen. - AST/ALT elevated on admission and continue to trend up. Most recently AST 180 and ALT 203 - LFT pattern does not suggest hepatic congestion or cholestasis. However, based on patient's history and physical exam would like to check an Echo. - Hepatitis panel negative - If symptoms do not start to RECOMMENDATIONS: - Change azithromycin to levofloxacin - Stop acetaminophen - Obtain Echocardiogram - Monitor LFTs - Labs ordered r/o auto-immune hepatitis, hemochromatosis Additional problems managed by primary medicine team: - Acute urinary tract infection (UTI), present on admission. - Possible acute right upper lobe community acquired pneumonia - History of hypertension - History of hypercholesterolemia - Continue with home statin History of dementia, appears at baseline - Acute urinary tract infection (UTI) with Enterococ Faecalis - (Group D) - Possible acute right upper lobe community acquired pneumonia - Acute transaminitis - Generalized weakness due to underlying infection - Acute mild hyponatremia and hypochloremia Problems: GI Prophylaxis: Proton Pump Inhibitor VTE Prophylaxis: Sub-Q Heparin (Unfractionated) VTE Mechanical Devices: Intermittant Pneumatic CD Resuscitation Status: DNR/DNI:Do Not Resuscitate/Intubate (discussed and verified with patient's and reviewed signed POLST) Joslyn Cabrera DO Dec 13, 2016 09:58
[2016-12-13 20:35] VITALS: BP 163/81; PULSE 80; RESP 16; O2SAT 94
[2016-12-14] MEDS: Heparin 5,000 Unit/mL Inj SUBQ SCH ×3 (00:22→16:32)
--- NOTE | 2016-12-14 03:59 | NUR ---
Activity Patient has dementia at baseline. No episodes of confusion or attempting to get out of bed. at bedside. Patient denies and exhibits no signs of pain. Patient is afebrile. Bed down, rails up, call light in reach. Care continues.
[2016-12-14 06:00] VITALS: BP 158/71; PULSE 69; RESP 16; O2SAT 95
[2016-12-14] MEDS: Pantoprazole 20 mg ER24 Tablet PO SCH (06:07)
[2016-12-14] MEDS ORDERED: levoFLOXacin 750 mg Tablet PO SCH (08:30)
[2016-12-14] MEDS: Artificial Tears 15 mL Ophthalmic Solution BOTH_EYES SCH ×2 (09:15→20:37)
[2016-12-14 09:22] VITALS: BP 119/73; PULSE 67; RESP 17; O2SAT 95
--- NOTE | 2016-12-14 10:59 | PCM.PNMED ---
Subjective Date of Service Dec 14, 2016 Subjective GASTROENTEROLOGY PROGRESS NOTE: Attending Physician: Kvng Wu MD Resident Physician: Joslyn Cabrera DO No acute events overnight. Patient is sitting up visiting with family and appears comfortable. She states that she is doing 'just fine'. Unable to complete complete review of systems due to patient's baseline dementia. She denies nausea, vomiting, chest pain, and shortness of breath. Exam Vital Signs Vital Sign - Last Date Time Temp Pulse Resp B/P Pulse Ox O2 Delivery O2 Flow Rate FiO2 12/14/16 09:22 36.8 67 17 119/73 95 Room Air Intake and Output 12/13/16 12/13/16 12/14/16 Cumulative From/Thru 15:00 23:00 07:00 12/10/16 04:07 - 12/14/16 06:39 Intake Total 472 ml 440 ml 5839 ml Balance 472 ml 440 ml 5839 ml Intake Oral 472 ml 440 ml 3632 ml IV Total 2207 ml # Voids 5 3 27 # Bowel Movements 0 7 Exam General: Demented, elderly woman in no acute distress. HEENT: Normocephalic, atraumatic. Anicteric sclera. Mucous membranes moist/pink Lungs: Trace bilateral crackles otherwise clear to auscultation Cardiovascular: Regular rate/rhythm. No murmurs Abdomen: Soft, Non-tender, Non-distended, No masses, Normoactive bowel tones Extremities: No cyanosis/clubbing/edema bilaterally Skin: Warm and dry. No obvious rashes or ulcerations Neurological: AOx2, No focal neurologic deficit. Normal speech . IVs and Medications Medications Reviewed: Medications were reviewed in detail Lab and Diagnostics Laboratory Tests Test 12/14/16 07:30 Sodium Level 134mEq/L (134-144) Potassium Level 4.6mEq/L (3.5-5.2) Chloride Level 99mEq/L (97-108) Carbon Dioxide Level 24mmol/L (18-29) Blood Urea Nitrogen 13mg/dL (8-27) Creatinine 0.62mg/dL (0.57-1.00) Estimat Glomerular Filtration Rate 130mL/min (>59) Glucose Level 98mg/dL (60-99) Calcium Level 8.9mg/dL (8.5-10.1) Total Bilirubin 0.3mg/dL (0.0-1.2) Aspartate Amino Transf (AST/SGOT) 115U/L (0-50) Alanine Aminotransferase (ALT/SGPT) 165U/L (0-32) Alkaline Phosphatase 101U/L (25-165) Total Protein 6.6g/dL (6.4-8.4) Albumin 3.4g/dL (3.4-5.0) Microbiology 12/10/16 Blood Culture - No growth at 2 days 12/10/16 Urine Culture - Enterococ Faecalis - (Group D); Mixed Urogenital Rosio Result Diagram: 12/11/1644412/14/16 0730 X-Rays, CTs and MRIs Date of Service: 12/10/16 044 PROCEDURE: X-RAY CHEST ONE VIEW, PORTABLE ([id number]) IMPRESSION: Increase chronic fibrotic markings in the chest. Minimal infiltrate in the right upper lobe laterally cannot be excluded. Dictated by: Adam Nuno M.D. on 12/10/2016 at 8:02 Approved by: Adam Nuno M.D. on 12/10/2016 at 8:03 Additional Diagnostics Date of Service: 12/11/16 0729 PROCEDURE: US ABDOMEN IMPRESSION: Increased hepatic echogenicity noted likely related to fatty infiltration of the liver but other sources of hepatocellular disease cannot be excluded. Recommend clinical correlation. Gallbladder sludge. Dictated by: Matthew Marsh [facility] Interpreted: Simon Graves MD on 12/11/2016 at 11: 06 Approved by: Michael Graves M.D. on 12/11/2016 at 11:34 Assessment & Plan 86-year-old lady with a history of vascular dementia, hypertension, hyperlipidemia, left eye blindness, and ectopic supraventricular beats who presented to the emergency department via EMS with a 6 day history of fever, non -productive cough, fatigue, and generalized weakness. Admitted for further evaluation and management of pneumonia and UTI. GI consulted for persistently elevated transaminases on hospital day #3. Persistently elevated transaminases in patient with acute urinary tract infection and probable community acquired pneumonia. On day #3 of antibiotic therapy, Ceftriaxone and Azithromycin. - Likely secondary to azithromycin. - AST/ALT elevated on admission and trended up. Today AST/ALT trending down, most recently 115/165 down from 180/203 yesterday (12/13) - Hepatitis panel negative RECOMMENDATIONS: - Continue levofloxacin - Monitor LFTs Additional problems managed by primary medicine team: - Acute urinary tract infection (UTI) with Enterococ Faecalis - (Group D) - Possible acute right upper lobe community acquired pneumonia - History of hypertension - History of hypercholesterolemia - History of dementia, appears at baseline - Acute mild hyponatremia and hypochloremia . I examined the patient with the resident and agree with above. GI Prophylaxis: Proton Pump Inhibitor VTE Prophylaxis: Sub-Q Heparin (Unfractionated) VTE Mechanical Devices: Intermittant Pneumatic CD Resuscitation Status: DNR/DNI:Do Not Resuscitate/Intubate (discussed and verified with patient's and reviewed signed POLST) Joslyn Cabrera DO Dec 14, 2016 10:59 Kvng Wu MD Dec 15, 2016 09:33
--- NOTE | 2016-12-14 11:08 | PCM.PALLBR ---
Palliative Care Recommendation Summary of palliative recommendations: -Symptom management (Pain/other): per Attending ([place] [facility]ist Team). -DPOA/Advanced Directives/POLST: 1. Code status: DNR/DNI 2. Pt is not capacitated due to her vascular dementia. Her 2nd "Carlin Moseley (Wilfred) is her HCPOA. 3. Advanced Directives: unclear at this time. Will plan on assisting with new POLST prior to DC that will reflect their wishes at that time. -Family/emotional support: Carlin is an excellent, loving caregiver. His perception is that he can keep on caring for her in his home. Both the group worker and Dr. Salgado have been trying to persuade him to move her bedroom downstairs in their home as she is not safe for climbing stairs (there are 15 from the first to second floor). Currently, she is not able to stand independently, let alone walk. (See PT assessment 12/11). PT reevaluating and on 12/13 Carlin noted that he might be willing for her to go to an SNF for a short stay (to help strengthen her and to give him some respite). -Spiritual support: not discussed today. 's Goals for patient: 1. "Get treated for this pneumonia and UTI, and get her back home." 2. Carlin clearly is willing to put in the work of caregiving, and whenever she is placed at a SNF, he has followed her and spent most of every day in her room at the SNF, caring for her. 3. Carlin does acknowledge that it takes a long time to take care of her bathroom needs, to help her with eating meals. He is more tired some days, but he is very unwilling to have other people come into his home to help him care for her. Hospice info visit on 12/12 though Carlin was unwilling to enroll at this time. Prognosis: From observations of patient with PT 12/11 and observation/exam on , 12/13, 12/14-- we feel patient qualifies for Hospice based on her poor functional status (FAST 7c). Palliative care will continue to follow and assist patient and her spouse as plans evolve. Problems: End of Life Preferences DNR/DNI/limited interventions. Carlin is not sure that he is ready for hospice because he is not sure he is ready to have care only at home. He notes that he would want to call EMS and return to hospital if she became ill, and is uncomfortable committing purely to home care with hospice. Disposition To be determined Resuscitation Status Resuscitation Status: DNR/DNI:Do Not Resuscitate/Intubate (discussed and verified with patient's and reviewed signed POLST) POLST Updates/Changes Previous POLST?: Yes POLST Review Outcome: No Change Total time 25 minutes; >50% face to face with patient and/or family, providing counselling regarding plans and recommendations, and in care coordination with his/her medical teams. Palliative Brief Note Date of Service Dec 14, 2016 . Patient Identification: 86 yo WMF with history of advanced vascular dementia is brought by her with report of patient increasingly more weak and occasional cough over the past several days with fever of 100.4 yesterday. Patient herself is quite demented and thus unable to provide any significantly meaningful history. She has mild shortness of breath and dysuria. Hospital Course: In the ER she received a dose of IV Levofloxacin and was admitted for presumed pneumonia and UTI. On 12/11, she started to have elevated LFTs and is getting some imaging and a GI cyber security consultant has suggested this is due to azithromycin for her Community-acquired pneumonia. They changed antibiotics to levofloxacine. Her LFTs are resolving and she is getting closer to becoming medically stable for discharge. PT dacia recommended SNF for additional PT. Dr. Salgado returned this morning to reeval patient. Spoke with her and her . He met with hospice but was not ready to sign on. Sara has advanced dementia and is not decisional (though her continues to speak with her and ask her questions as if she is). He is still considering SNF placement, to give him some respite from the intensive care he gives to her at home. He remains hopeful that she will improve/recover to the point where he could resume her care at home. Exam General: sleeping, no visual signs of discomfort Head: Normal,mucus membranes moist. 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 Also spoke about possible SNF placement, even if for brief time for respite for him. He has cared for patient at home for years, with increasing care burden, and recognizes that her needs may soon outstrip his capacity (but he remains hopeful that she will improve/recover to the point where he could continue her care at home). Bianca Salgado MD Dec 14, 2016 11:08
--- NOTE | 2016-12-14 11:20 | PCM.PNMED ---
Subjective Date of Service Dec 14, 2016 Subjective Denies any new issues/complaints. Exam Vital Signs Vital Sign - Last Date Time Temp Pulse Resp B/P Pulse Ox O2 Delivery O2 Flow Rate FiO2 12/14/16 09:22 36.8 67 17 119/73 95 Room Air Intake and Output 12/13/16 12/13/16 12/14/16 Cumulative From/Thru 15:00 23:00 07:00 12/10/16 04:07 - 12/14/16 06:39 Intake Total 472 ml 440 ml 5839 ml Balance 472 ml 440 ml 5839 ml Intake Oral 472 ml 440 ml 3632 ml IV Total 2207 ml # Voids 5 3 27 # Bowel Movements 0 7 Exam General: Alert, Cooperative, No Acute Distress Head: Normal Eyes: Scleral Anicteric, Other (left eye blind) Nose: Mucous Membr Moist/Clint Mouth: Mucous Membr Moist/Clint Neck: Supple Chest & Lungs: Chest Wall Normal, Clear to auscultation bilat Cardiovascular: Regular Rate/Rhythm Abdomen: Non-tender, Non-distended, Normoactive bowel tones, Soft Extremities: No cyanosis/clubbing/edema bilat Skin: Other (no significant ulcer/rash) Neurological: Grossly Neurologically Intact, Normal Speech IVs and Medications Medications Reviewed: Medications were reviewed in detail Lab and Diagnostics Result Diagram: 12/11/1644412/14/16729 X-Rays, CTs and MRIs Date of Service: 12/10/16446 PROCEDURE: X-RAY CHEST ONE VIEW, PORTABLE ([id number]) IMPRESSION: Increase chronic fibrotic markings in the chest. Minimal infiltrate in the right upper lobe laterally cannot be excluded. Dictated by: Adam Nuno M.D. on 12/10/2016 at 8:02 Approved by: Adam Nuno M.D. on 12/10/2016 at 8:03 Additional Diagnostics Date of Service: 12/11/16 0729 PROCEDURE: US ABDOMEN IMPRESSION: Increased hepatic echogenicity noted likely related to fatty infiltration of the liver but other sources of hepatocellular disease cannot be excluded. Recommend clinical correlation. Gallbladder sludge. Dictated by: Matthew Marsh Feli Interpreted: Simon Graves MD on 12/11/2016 at 11: 06 Approved by: Michael Graves M.D. on 12/11/2016 at 11:34 Assessment & Plan 86 year old female with history of dementia is brought by her with report of increased weakness, occasional cough, and fever # Acute urinary tract infection (UTI) with Enterococ Faecalis - (Group D), present on admission. - Changed Azithromycin/Ceftriaxone (12/10-12/11) back to Levofloxacin on 12/12/16 given culture results # Possible acute right upper lobe community acquired pneumonia, present on admission - Ceftriaxone + Azithromycin changed to Levofloxacin as noted above - Continue with supportive care - Swallow evaluation ordered for 12/14 to rule out possible aspiration # Acute transaminitis, present on admission. was getting worse since admission but improving as of 12/14 - Abdominal U/S unrevealing as noted above - Viral hepatitis panel negative - Appreciate GI consult. Will followup with recs - Followup pending blood works - Will hold off on echo given improving LFTs already # Generalized weakness due to underlying infection, present on admission - Antibiotics as noted above - IVF - PT - Supportive care # Acute mild hyponatremia and hypochloremia, present on admission. Ongoing - Hold home dose Hctz for now and continue gentle IVF - Followup repeat labs in am # History of hypertension, stable - Continue with home BP meds # History of hypercholesterolemia - Hold Statin given transaminitis # History of dementia, appears at baseline - Continue with supportive care Dispo: Likely SNF tomorrow pending further PT eval, swallow eval, and improving LFTs GI Prophylaxis: Proton Pump Inhibitor VTE Prophylaxis: Sub-Q Heparin (Unfractionated) VTE Mechanical Devices: Intermittant Pneumatic CD Resuscitation Status: DNR/DNI:Do Not Resuscitate/Intubate (discussed and verified with patient's and reviewed signed POLST) Jonathan Rodgers Dec 14, 2016 11:20
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
--- NOTE | 2016-12-14 17:52 | NUR ---
Activity Up to chair with [id number] lift and PT. is leading her through seated exercises. Son and daughter visited and assisted with hygiene (nail filing and hair brushing.)
[2016-12-14 20:10] VITALS: BP 146/77; PULSE 84; RESP 16; O2SAT 95
[2016-12-15] MEDS: Heparin 5,000 Unit/mL Inj SUBQ SCH ×2 (00:08→09:49)
--- NOTE | 2016-12-15 03:18 | NUR ---
Medications administration Patient had difficulty understanding cues to swallow oral medications. Patient kept spitting medications back out into cup. had patient take the tablets in her hand and put them in her own mouth. The patient was able to then orient to what she was doing and swallow the medications this way. Patient up to chair with PT this afternoon per report. Patient resting in bed thus far this shift. Vitals stable. Patient denies pain. Care continues.
[2016-12-15 06:14] LABS: Bilirubin, Direct 0.2 mg/dL (0.0-0.3)
[2016-12-15] MEDS: Pantoprazole 20 mg ER24 Tablet PO SCH (07:54)
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
[2016-12-15] MEDS: Artificial Tears 15 mL Ophthalmic Solution BOTH_EYES SCH (09:49)
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
--- NOTE | 2016-12-15 11:11 | PCM.DIMED ---
Discharge Instructions Date of Service Dec 15, 2016 Dates of Hospitalization Dec 10, 2016 at 06:21 Discharge Diagnosis Discharge Diagnosis # Acute urinary tract infection (UTI) with Enterococ Faecalis - (Group D), present on admission. # Possible acute right upper lobe community acquired pneumonia, present on admission # Acute transaminitis, present on admission. improving # Generalized weakness due to underlying infection, present on admission, improving # History of hypertension, stable # History of hypercholesterolemia # History of dementia, appears at baseline Diet Discharge Diet: Low fat, Low Sodium Activity Discharge Activity: Other (continue physical therapy at senior living facility) Call your provider Call your provider for: Fever or Chills, Shortness of breath, Bleeding, Chest pain, Vomitting, Excessive diarrhea, Weakness (unilateral) Patient Instructions Patient Instructions You were hospitalized due to generalized weakness. Seems to be due to infection ,UTI and pneumonia. Please continue Levaquin for 3 more days.You also had liver function test abnormality which is improving. Etiology is unclear. Please continue physical therapy at senior living facility. Follow-up Provider: Magno Michele MD Follow-up with PCP in: 1 week (1 week after discharge from senior living facility.) Joby oJnes MD Dec 15, 2016 11:11
[2016-12-15] MEDS ORDERED: LEVO500T20 PO ×2 (11:13→11:43)
--- NOTE | 2016-12-15 11:44 | NUR ---
DETENTION TRANSFER: Called and spoke with Sudhakar at [facility] and asked him to arrange wheel chair roll picker for patient. Time to be determined. Faxed orders and placed copy in chart. Updated BELT PRESS OPERATOR
--- NOTE | 2016-12-15 12:44 | NUR ---
Social Work: Discharge/Multidisciplinary Rounds D: EMR reviewed. Pt is on day 5 of hospitalization. Pt discussed in multidisciplinary rounds and is medically stable for discharge to [facility] where she has been accepted with Dr. Pulido to follow. SW updated Shoe Lay Out Planner who confirmed pt transport time of 1400 today. Shoe Lay Out Planner completed transfer packet. UA/RN updated on transfer time. All updated and agreeable to plan. A: Pt for whom a SNF is medically necessary P: Pt to transfer to [facility] today at 1400. Discharge ppw, rx, and PASRR faxed by Shoe Lay Out Planner. Shoe Lay Out Planner completed transfer packet. UA/RN updated on transfer time. Spouse updated and agreeable. All updated and agreeable to plan. ANDRZEJ Ramey
--- NOTE | 2016-12-15 14:49 | NUR ---
Discharge Orders for discharge were received. The patient and family was made aware of the plans for discharge and was agreeable to go. The patient's belongings were gathered, with the patient and family denying any medications or belongings in the hospital pharmacy or safe. The patient's asymptomatic IV was removed and the patient transferred into a wheelchair. The patient was then wheeled to the main entrance where she entered a private transportation vehicle en route to [facility]. Report called to receiving RN. At the time of discharge the patient denied any chest pain, nausea or other difficultly.
--- NOTE | 2016-12-15 16:03 | PCM.DC.MED ---
Discharge Summary Date of Service Dec 15, 2016 Dates of Hospitalization Date of Hospital Admission Dec 10, 2016 at 06:21 Date of Discharge: Dec 15, 2016 Providers: Admitting Physician: Israel Glover MD Primary Care Physician: Magno Michele MD Attending Physician: Jonathan Rodgers Diagnosis at Time of Discharge Diagnosis at Time of Discharge # Acute urinary tract infection (UTI) with Enterococ Faecalis - (Group D), present on admission. # Possible acute right upper lobe community acquired pneumonia, present on admission # Acute transaminitis, present on admission. improving # Generalized weakness due to underlying infection, present on admission, improving # History of hypertension, stable # History of hypercholesterolemia # History of dementia, appears at baseline Consultations GI Dr Wu Procedures XRay, CTs & MRIs 12/10/16 - X-RAY CHEST ONE VIEW, PORTABLE IMPRESSION: - Increase chronic fibrotic markings in the chest. - Minimal infiltrate in the right upper lobe laterally cannot be excluded. Approved by: Adam Nuno M.D. on 12/10/2016 at 8:03 12/11/16 - US ABDOMEN IMPRESSION: -Increased hepatic echogenicity noted likely related to fatty infiltration of the liver but other sources of hepatocellular disease cannot be excluded. Recommend clinical correlation. -Gallbladder sludge. Approved by: Michael Graves M.D. on 12/11/2016 at 11:34 . Other Diagnostics Date of Service: 12/11/16 0729 PROCEDURE: US ABDOMEN IMPRESSION: Increased hepatic echogenicity noted likely related to fatty infiltration of the liver but other sources of hepatocellular disease cannot be excluded. Recommend clinical correlation. Gallbladder sludge. Dictated by: Matthew Marsh [facility] Interpreted: Simon Graves MD on 12/11/2016 at 11: 06 Approved by: Michael Graves M.D. on 12/11/2016 at 11:34 Brief History per HPI 86 year old female with history of advanced dementia is brought by her with report of patient increasingly more weak and occasional cough over the past several days with fever of 100.4 yesterday. Patient herself is quite demented and thus unable to provide any significantly meaningful history. She does report mild shortness of breath and dysuria. In the ER she received a dose of IV Levofloxacin for presumed pneumonia and UTI. Hospital Course 86 year old female with history of dementia is brought by her with report of increased weakness, occasional cough, and fever # Acute urinary tract infection (UTI) with Enterococ Faecalis - (Group D), present on admission. - Changed Azithromycin/Ceftriaxone (12/10-12/11) back to Levofloxacin on 12/12/16 given culture results. Continue levofloxacin for 2 more days. # Possible acute right upper lobe community acquired pneumonia, present on admission - Ceftriaxone + Azithromycin changed to Levofloxacin as noted above - Continue levofloxacin for 2 more days. # Acute transaminitis of unclear etiology, present on admission. improving - Abdominal U/S unrevealing as noted above - Viral hepatitis panel negative # Generalized weakness due to underlying infection, present on admission, improving - Antibiotics as noted above - PT recommended SNF. Continue physical therapy - Supportive care - states mentation improved back to Baseline. Generalized weakness also improving # Acute mild hyponatremia and hypochloremia, present on admission. Improved - Held home dose Hctz for now and continue gentle IVF. Resume home meds # History of hypertension, stable - Continue with home BP meds # History of hypercholesterolemia - Hold Statin given transaminitis # History of dementia, appears at baseline - Continue with supportive care Dispo: [facility]charged to [facility] facility Exam Vital Signs (Last) Date Time Temp Pulse Resp B/P Pulse Ox O2 Delivery O2 Flow Rate FiO2 12/14/16 20:10 36.7 84 16 146/77 95 Room Air Exam General: Alert, Cooperative, No Acute Distress Head: Normal Eyes: Scleral Anicteric, Other (left eye blind) Nose: Mucous Membr Moist/[place] Mouth: Mucous Membr Moist/[place] Neck: Supple Chest & Lungs: Chest Wall Normal, Clear to auscultation bilat Cardiovascular: Regular Rate/Rhythm Abdomen: Non-tender, Non-distended, Normoactive bowel tones, Soft Extremities: No cyanosis/clubbing/edema bilat Skin: Other (no significant ulcer/rash) Neurological: Grossly Neurologically Intact, Normal Speech Test 12/10/16 05:10 12/10/16 05:28 12/11/16 04:45 12/12/16 07:40 Lactic Acid Level 1.1mmol/L (0.4-2.0) Procalcitonin 0.12ng/mL (0.00-0.08) Urine Color Yellow (YELLOW) Urine Appearance Cloudy (CLEAR,HAZY) Urine pH 6.0 (5.0-8.0) Urine Specific [place] 1.015 (1.003-1.035) Urine Protein Tracemg/dL (NEG,TRACE) Urine Glucose (UA) Negativemg/dL (NEGATIVE) Urine Ketones Negativemg/dL (NEGATIVE) Urine Occult Blood Moderate (NEGATIVE) Urine Nitrite Negative (NEGATIVE) Urine Bilirubin Negative (NEGATIVE) Urine Urobilinogen Normalmg/dL (NORMAL) Urine Leukocyte Esterase Large (NEGATIVE) Urine RBC 3-10/hpf (0-2) Urine WBC Packed/hpf (0-5) Urine Epithelial Cells Occasional/hpf (NONE-MOD) Urine Crystals None seen (NONE SEEN) Urine Bacteria Many/hpf (NONE-FEW) Urine Hyaline Casts None/lpf (NONE) Urine Granular Casts None seen (NONE SEEN) Urine Waxy Casts None seen (NONE SEEN) Urine Red Blood Cell Casts None seen (NONE SEEN) Urine White Blood Cell Casts None seen (NONE SEEN) Urine Mucus None seen (None Seen) Urine Trichomonas None seen (NONE SEEN) Urine Yeast None (NONE SEEN) Urinalysis Comment None Urine Culture Reflexed Indicated White Blood Count 10.1th/mm3 (3.8-10.1) Red Blood Count 3.67mil/mm3 (3.90-5.20) Hemoglobin 11.8g/dL (12.0-15.6) Hematocrit 34.6% (35.0-46.0) Mean Corpuscular Volume 94.3fL (81-100) Mean Corpuscular Hemoglobin 32.2pg (27.0-35.0) Mean Corpuscular Hemoglobin Concent 34.1% (32.0-37.0) Red Cell Distribution Width 13.3% (12.3-15.4) Platelet Count 210bil/L (150-400) Neutrophils (%) (Auto) 67.6% (40-74) Lymphocytes (%) (Auto) 19.1% (14-46) Monocytes (%) (Auto) 11.8% (4-12) Eosinophils (%) (Auto) 0.9% (0-5) Basophils (%) (Auto) 0.1% (0-3) Magnesium Level 1.9mg/dL (1.6-2.6) Hepatitis A IgM Antibody Negative (Negative) Hepatitis B Surface Antigen Negative (Negative) Hepatitis B Core IgM Antibody Negative (Negative) Hepatitis C Antibody <0.1s/co ratio (0.0-0.9) Hepatitis C Comment Comment (.) Test 12/13/16 05:40 12/14/16 07:30 12/15/16 05:00 Iron Level 58ug/dL (35-150) Total Iron Binding Capacity 220ug/dL (250-450) Percent Iron Saturation 26%sat (15-50) Unsaturated Iron Binding 162.2ug/dL Ferritin 363ng/mL (13-150) [id number] 220mg/dL (90-200) Sodium Level 134mEq/L (134-144) Potassium Level 4.6mEq/L (3.5-5.2) Chloride Level 99mEq/L (97-108) Carbon Dioxide Level 24mmol/L (18-29) Blood Urea Nitrogen 13mg/dL (8-27) Creatinine 0.62mg/dL (0.57-1.00) Estimat Glomerular Filtration Rate 130mL/min (>59) Glucose Level 98mg/dL (60-99) Calcium Level 8.9mg/dL (8.5-10.1) Total Bilirubin 0.3mg/dL (0.0-1.2) Direct Bilirubin 0.2mg/dL (0.0-0.3) Aspartate Amino Transf (AST/SGOT) 105U/L (0-50) Alanine Aminotransferase (ALT/SGPT) 159U/L (0-32) Alkaline Phosphatase 101U/L (25-165) Total Protein 6.6g/dL (6.4-8.4) Albumin 3.3g/dL (3.4-5.0) Discharge Medications Discharge Medications Alendronate Sodium (Fosamax) 70 Mg Tablet 70 MG PO Q Sunday (Reported) Aspirin (Aspirin) 81 Mg Tablet 81 MG PO QPM (Reported) Dextran 70/Hypromellose/Pf (Artificial Tears Drops) 1 Each Droperette 1 DROP BOTH_EYES BID (Reported) Dextrin (Fiber) 350 Gm Powder 1 TSP PO DAILY (Reported) Lactobacillus Acidophilus (Probiotic) 1 Each Capsule 1 CAPSULE PO HS (Reported) Levofloxacin (Levaquin) 500 Mg Tablet 500 MG PO DAILY Prescribed by: NYA LING MD Lovastatin (Lovastatin) 40 Mg Tablet 40 MG PO HS (Reported) Metoprolol Tartrate (Metoprolol Tartrate) 25 Mg Tablet 25 MG PO QAM (Reported) Multivitamin (Multivitamins) 1 Each Capsule 1 EACH PO DAILY (Reported) Omeprazole (Omeprazole) 20 Mg Capsule.dr 20 MG PO Every other day (Reported) Polyethylene Glycol 3350 (Miralax) 17 Gm Powd.pack 8.6 GM PO Every other day ( Reported) Half a package Followup Plan Disposition: [facility] Discharge Diet: Low fat, Low Sodium Discharge Activity: Other (continue physical therapy at retirement facility) Patient Instructions You were hospitalized due to generalized weakness. Seems to be due to infection ,UTI and pneumonia. Please continue Levaquin for 3 more days.You also had liver function test abnormality which is improving. Etiology is unclear. Please continue physical therapy at retirement facility. Follow-up Provider: Magno Michele MD Follow-up with PCP in: 1 week (1 week after discharge from retirement facility.) Time spent 35 minutes coordinating discharge copies to: Magno Michele MD; Kate Pulido MD, Melaku MD Dec 15, 2016 16:03
== END 2016-12-15 14:10 | DRG 689 ==
LOC: EDBD 03:59 → SED 03:59 → EDUNIT# 03:59 → INTOOBSV 06:21 → OSC 06:21 → OBSVTOIN 06:21
PROVIDERS: ADMIT Hospitalist; ATTEND Internal Medicine
DX: N39.0 Urinary tract infection, site not specified (principal); J18.9 Pneumonia, unspecified organism; E87.1 Hypo-osmolality and hyponatremia; Z79.82 Long term (current) use of aspirin; Z87.891 Personal history of nicotine dependence; I10 Essential (primary) hypertension; E78.00 Pure hypercholesterolemia, unspecified; Z66 Do not resuscitate; Z51.5 Encounter for palliative care; F03.90 Unspecified dementia, unspecified severity, without behavioral disturbance, psychotic disturbance, mood disturbance, and anxiety; M62.81 Muscle weakness (generalized); R74.0 Nonspecific elevation of levels of transaminase and lactic acid dehydrogenase [LDH]; B95.2 Enterococcus as the cause of diseases classified elsewhere